=== PATIENT | male | born 1965 ===

== ENCOUNTER 2018-06-10 02:21 | Emergency (ER) | payer SELFPAY ==
[2018-06-10 02:57] VITALS: O2SAT 100
--- NOTE | 2018-06-10 02:59 | C.PDOC ---
History Of Present Illness MIRIAN,presents to the ED due to public intoxication looking for a place to stay. Upon arrival, the patient offers no medical complaints. No signs of trauma were present upon arrival. Time Seen by Provider: 06/10/18 02:46 Chief Complaint (Nursing): Substance Abuse History Per: Patient History/Exam Limitations: no limitations Onset/Duration Of Symptoms: Hrs Current Symptoms Are (Timing): Still Present Modifying Factor(s): Alcohol Severity: Mild Pain Scale Rating Of: 4 Associated Symptoms: denies: Suicidal Thoughts, Suicidal Plan Recent travel outside of the [place]: No Past Medical History Reviewed: Historical Data, Nursing Documentation, Vital Signs Vital Signs: Last Vital Signs Temp 98 F 06/10/18 02:38 Pulse 56 L 06/10/18 02:38 Resp 18 06/10/18 02:38 BP 126/82 06/10/18 02:38 Pulse Ox 100 06/10/18 02:38 - Medical History PMH: No Chronic Diseases Surgical History: No Surg Hx Family History: States: Unknown Family Hx - Social History Hx Alcohol Use: Yes Hx Substance Use: No - Immunization History Hx Tetanus Toxoid Vaccination: No Hx Influenza Vaccination: No Hx Pneumococcal Vaccination: No Review Of Systems Review Of Systems: ROS cannot be obtained secondary to pt's inabilty to answer questions. Physical Exam - Physical Exam Appears: Non-toxic, No Acute Distress, Other (AOB) Skin: Warm, Dry Head: Normacephalic Eye(s): bilateral: Normal Inspection Neck: No Trachea Midline, Supple Chest: Symmetrical Cardiovascular: Rhythm Regular Respiratory: No Rales, No Wheezing Gastrointestinal/Abdominal: Soft, No Tenderness, No Distention Extremity: Bilateral: Normal Color And Temperature Pulses: Left Dorsalis Pedis: Normal, Right Dorsalis Pedis: Normal Neurological/Psych: Other (Awake. Alert. no gross focal deficits.) ED Course And Treatment O2 Sat by Pulse Oximetry: 100 (RA) Pulse Ox Interpretation: Normal Reevaluation Time: 06:10 Reassessment Condition: Improved Disposition Counseled Patient/Family Regarding: Studies Performed, Diagnosis, Need For Followup - Disposition Referrals: [facility] [Outside] Disposition: HOME/ ROUTINE Disposition Time: 02:58 Condition: FAIR Instructions: Alcohol Abuse and Alcoholism (DC) Forms: [employer] (Ethiopian) - Clinical Impression Clinical Impression: Alcohol intoxication - Scribe Statement The provider has reviewed the documentation as recorded by the Nathalie Felipe Provider Attestation: All medical record entries made by the Nathalie were at my direction and personally dictated by me. I have reviewed the chart and agree that the record accurately reflects my personal performance of the history, physical exam, medical decision making, and the department course for this patient. I have also personally directed, reviewed, and agree with the discharge instructions and disposition.
[2018-06-10 05:47] VITALS: BP 117/77; PULSE 58; RESP 16; TEMP 97.6
== END 2018-06-10 06:11 | disposition home or self-care (01) ==
LOC: C.ER 02:21
DX: F10.129 Alcohol abuse with intoxication, unspecified (principal); Y90.9 Presence of alcohol in blood, level not specified